=== PATIENT | male | born 1980 | race Caucasian/White ===

== ENCOUNTER 2023-02-15 14:01 | Outpatient (OUT) | payer BC, SELFPAY ==
--- NOTE | 2023-02-15 | XR_ITS ---
The [address] [address] Patient Name: HAYLEY CASTRO MRN: [id number] date: 1980 Sex: M Assigned Patient Location: [facility] Current Patient Location: [facility] Accession/Order Number: [id number] Exam Date: 02/15/2023 14:10 Report Date: 02/15/2023 21:42 At the request of: MIKE AMEZQUITA Procedure: XR foot RT min 3V EXAM: XR foot RT min 3V HISTORY: RIGHT FOOT PAIN . Follow-up study. COMPARISON: None available TECHNIQUE: 3 views of the right foot were obtained. FINDINGS: There is a fracture at the base of the fifth metatarsal bone. The largest fracture fragment at the base is displaced proximally approximately 4 mm, and is slightly rotated. There is no other evidence of an acute fracture dislocation about the foot. The joint spaces are intact. XR/XR foot RT min 3V IMPRESSION: There is a fracture at the base of the fifth metatarsal bone, and the largest proximal fracture fragment is displaced proximally and slightly rotated. There is no evidence of osseous healing. The patient had a study performed 02/06/2023, and the images and report are not available for direct comparison at this time. If the patient's symptoms persist, perhaps a follow-up study would be helpful. Electronically authenticated by: MIKE COLE Date: 02/15/2023 21:42
== END 2023-02-15 14:02 | disposition home or self-care (01) ==
LOC: RAD 14:02
PROVIDERS: Visit Provider Podiatrist Foot & Ankle Surgery
DX: S92.351A Displaced fracture of fifth metatarsal bone, right foot, initial encounter for closed fracture (principal)
CPT/HCPCS: 73630

== ENCOUNTER 2023-03-01 09:00 | Outpatient (OUT) | payer BC, SELFPAY ==
--- NOTE | 2023-03-01 | XR_ITS ---
The [address] [address] Patient Name: HAYLEY CASTRO MRN: [id number] date: 1980 Sex: M Assigned Patient Location: [facility] Current Patient Location: [facility] Accession/Order Number: [id number] Exam Date: 03/01/2023 09:06 Report Date: 03/01/2023 20:50 At the request of: MIKE AMEZQUITA Procedure: XR foot RT min 3V EXAM: XR foot RT min 3V HISTORY: RIGHT FOOT PAIN COMPARISON: 02/15/2023 TECHNIQUE: 3 views of the right foot were obtained. FINDINGS: Again seen is a fracture at the base of the fifth metatarsal bone with displacement of the fracture fragments. There is little if any osseous healing. There is no other evidence of an acute fracture or dislocation. Except for mild narrowing at the first metatarsophalangeal joint, the joint spaces are intact. XR/XR foot RT min 3V IMPRESSION: Fracture of the base of the fifth metatarsal bone with little evidence of osseous healing, and the appearance of nonunion. There is no other evidence of an acute fracture or dislocation. The overall appearance is essentially unchanged. Electronically authenticated by: MIKE COLE Date: 03/01/2023 20:50
== END 2023-03-01 09:01 | disposition home or self-care (01) ==
LOC: RAD 09:00
PROVIDERS: Visit Provider Podiatrist Foot & Ankle Surgery
DX: S92.351A Displaced fracture of fifth metatarsal bone, right foot, initial encounter for closed fracture (principal)
CPT/HCPCS: 73630

== ENCOUNTER 2023-03-15 09:16 | Outpatient (OUT) | payer BC, SELFPAY ==
--- NOTE | 2023-03-15 | XR_ITS ---
The [address] [address] Patient Name: HAYLEY CASTRO MRN: [id number] date: 1980 Sex: M Assigned Patient Location: [facility] Current Patient Location: [facility] Accession/Order Number: [id number] Exam Date: 03/15/2023 09:20 Report Date: 03/15/2023 23:20 At the request of: ESTIVEN JOLLEY Procedure: XR foot RT min 3V EXAM: XR foot RT min 3V HISTORY: RIGHT FOOT PAIN COMPARISON: 03/01/2023 TECHNIQUE: 3 views of the right foot are performed. FINDINGS: The fracture at the base of the fifth metatarsal is again seen. There is perhaps slight sclerosis to the fracture margins but no bridging callus. There is joint space narrowing at the first metatarsal-phalangeal joint. XR/XR foot RT min 3V IMPRESSION: No change in alignment to the fracture at the base of the fifth metatarsal. Electronically authenticated by: BANDAR JOHNSTON Date: 03/15/2023 23:20
== END 2023-03-15 09:17 | disposition home or self-care (01) ==
PROVIDERS: Visit Provider Podiatrist Foot & Ankle Surgery
DX: S92.351A Displaced fracture of fifth metatarsal bone, right foot, initial encounter for closed fracture (principal)
CPT/HCPCS: 73630